=== PATIENT | female | born 1970 | race African-American/Black ===

== ENCOUNTER 2018-02-07 15:22 | Inpatient (IN) | payer MEDICAID ==
[~2018-02-07] VITALS: Ht 167.6 cm; Wt 84.8 kg
[~2018-02-07 15:22] MED LIST: ALBU6.7H9 IH; AMLO10TA4 PO; ASC250 PO; CLON-457 PO; FERR325T23 PO; FLUT1DIS3 IH; HYDR-4001 PO; IBUP-2030 PO; LEVO500T2 PO; MONT10TA21 PO
[2018-02-07] MEDS ORDERED: METHYLPREDNISOLONE SOD SUCC 125 MG/2 ML VIAL IV STA (15:33)
[2018-02-07] MEDS ORDERED: ALBUTEROL (0.083%) 2.5MG/3ML NEB HHN STA (15:33)
[2018-02-07] MEDS ORDERED: IPRATROPIUM BROMIDE (0.02%) 0.5MG/2.5ML NEB HHN STA (15:33)
[2018-02-07 17:04] LABS: CHLORIDE 105 mEq/L (98-107)
[2018-02-07 17:08] LABS: BASOPHILS % 0.1 % (0.0-2.0); EOSINOPHILS % 0.6 % (0.0-5.0); HEMATOCRIT. 26.8 % (36.0-48.0); HEMOGLOBIN. 8.5 g/dL (12.0-16.0); LYMPHOCYTES % 13.6 % (20.0-50.0); MEAN CORPUSCULAR HEMOGLOBIN 29.9 pg (28.0-32.0); MEAN CORPUSCULAR VOLUME 94.2 fL (81.0-99.0); MEAN PLATELET VOLUME 6.6 fl (7.4-10.4); MONOCYTES % 7.3 % (2.0-8.0); NEUTROPHILS % 78.4 % (40.0-76.0); PLATELET 278 x1000/uL (130-400); RED BLOOD CELL COUNT 2.84 mill/uL (4.2-5.4); RED CELL DISTRIBUTION WIDTH 21.8 % (11.6-14.6)
[2018-02-07 17:11] LABS: HCG SCREEN NEGATIVE
[2018-02-07] MEDS ORDERED: ACETAMINOPHEN 325MG TABLET PO ONE (17:15)
[2018-02-07] MEDS ORDERED: LORAZEPAM 1MG TABLET PO ONE (17:15)
[2018-02-07 17:28] LABS: *AMPHETAMINES SCREEN URINE NEGATIVE (NEGATIVE); *BARBITURATES SCREEN URINE NEGATIVE (NEGATIVE)
[2018-02-07 17:29] LABS: *BENZODIAZEPINES SCREEN URINE NEGATIVE (NEGATIVE); METHADONE URINE SCREEN NEGATIVE (NEGATIVE); OPIATES URINE SCREEN NEGATIVE (NEGATIVE); PHENCYCLIDINE URINE SCREEN NEGATIVE (NEGATIVE)
[2018-02-07 17:36] LABS: *COCAINE SCREEN URINE PRESUMTIVE POSITIVE (NEGATIVE); CANNABINOID URINE SCREEN PRESUMTIVE POSITIVE (NEGATIVE)
[2018-02-07] MEDS ORDERED: ENOXAPARIN 40MG/0.4ML SYR SUBCUT SCH (18:45)
[2018-02-07] MEDS ORDERED: METHYLPREDNISOLONE SOD SUCC 125 MG/2 ML VIAL IV SCH (18:45)
[2018-02-07] MEDS ORDERED: MAGNESIUM/ALUMINUM HYDROXIDE/SIMETHICONE 30ML UDC PO PRN (18:45)
[2018-02-07] MEDS ORDERED: MORPHINE SULFATE 4 MG/ML CPJ (NOT FOR IM USE) IV PRN (18:45)
[2018-02-07] MEDS ORDERED: NA PHOS,M-B/NA PHOS,DI-BA ENEMA 118ML PR PRN (18:45)
[2018-02-07] MEDS ORDERED: GUAIFENESIN 200MG/10ML SUGAR FREE UDC PO PRN (18:45)
[2018-02-07] MEDS ORDERED: ONDANSETRON HCL 4MG/2ML INJ IV PRN (18:45)
[2018-02-07] MEDS ORDERED: LORAZEPAM 2MG/ML CPJ IV PRN (18:45)
[2018-02-07] MEDS ORDERED: ACETAMINOPHEN 325MG TABLET PO PRN (18:45)
[2018-02-07] MEDS ORDERED: DOCUSATE SODIUM 100MG CAPSULE PO PRN (18:45)
[2018-02-07] MEDS ORDERED: LEVOFLOXACIN 500MG PREMIX 100 ML IV SCH ×2 (19:00→19:21)
[2018-02-07 23:19] VITALS: BP 156/80
[2018-02-07] MEDS ORDERED: ZOLPIDEM TARTRATE 5MG TABLET PO PRN (23:45)
[2018-02-07] MEDS: HYDROCODONE/ACETAMINOPHEN 10/325MG TABLET PO PRN (23:46)
[2018-02-08] MEDS: METHYLPREDNISOLONE SOD SUCC 125 MG/2 ML VIAL IV SCH ×5 (00:34→23:56)
[2018-02-08 00:43] LABS: CREATINE KINASE 78 IU/L (26-192)
[2018-02-08 00:44] LABS: CREATINE KINASE MB FRACTION < 1.0 ng/mL (0.5-3.6)
[2018-02-08 00:49] VITALS: BP 156/80
[2018-02-08] MEDS: IPRATROPIUM/ALBUTEROL 0.5-3(2.5)MG/3ML NEB INH PRN ×3 (02:15→08:47)
[2018-02-08 04:00] VITALS: BP 171/89
[2018-02-08] MEDS: CLONIDINE 0.1MG TABLET PO PRN ×2 (04:10→08:51)
[2018-02-08 07:33] LABS: HEMATOCRIT. 25.7 % (36.0-48.0); HEMOGLOBIN. 8.4 g/dL (12.0-16.0); MEAN CORPUSCULAR HEMOGLOBIN 30.4 pg (28.0-32.0); MEAN CORPUSCULAR VOLUME 93.5 fL (81.0-99.0); MEAN PLATELET VOLUME 7.2 fl (7.4-10.4); PLATELET 286 x1000/uL (130-400); RED BLOOD CELL COUNT 2.75 mill/uL (4.2-5.4); RED CELL DISTRIBUTION WIDTH 21.6 % (11.6-14.6)
[2018-02-08 07:45] LABS: CHLORIDE 104 mEq/L (98-107)
[2018-02-08 08:00] VITALS: BP 165/83
[2018-02-08 08:04] LABS: CREATINE KINASE 90 IU/L (26-192)
[2018-02-08 08:07] LABS: CREATINE KINASE MB FRACTION < 1.0 ng/mL (0.5-3.6)
[2018-02-08] MEDS: ASPIRIN 81MG EC TABLET PO SCH (08:51)
[2018-02-08] MEDS: ENOXAPARIN 40MG/0.4ML SYR SUBCUT SCH (08:51)
[2018-02-08] MEDS ORDERED: INFLUENZA VIRUS VACCINE(AFLURIA) 0.5ML SYR IM ONE (10:00)
[2018-02-08] MEDS ORDERED: AMLODIPINE 10MG TABLET PO SCH ×2 (10:00→12:15)
[2018-02-08 12:24] VITALS: BP 173/97
[2018-02-08] MEDS: HYDROCODONE/ACETAMINOPHEN 10/325MG TABLET PO PRN ×2 (12:24→20:16)
[2018-02-08] MEDS: IPRATROPIUM/ALBUTEROL 0.5-3(2.5)MG/3ML NEB HHN SCH ×3 (12:28→21:41)
[2018-02-08 13:20] LABS: PLATELET ESTIMATE NORMAL
[2018-02-08 16:00] VITALS: BP 131/91
[2018-02-08 20:00] VITALS: BP 139/69
[2018-02-08] MEDS: LEVOFLOXACIN 500MG PREMIX 100 ML IV SCH (20:15)
[2018-02-08] MEDS: MONTELUKAST SODIUM 10MG TABLET PO SCH (20:15)
[2018-02-09] VITALS: BP 145/83
[2018-02-09] MEDS: IPRATROPIUM/ALBUTEROL 0.5-3(2.5)MG/3ML NEB HHN SCH ×6 (01:25→20:40)
[2018-02-09 04:00] VITALS: BP 143/68
[2018-02-09] MEDS: METHYLPREDNISOLONE SOD SUCC 125 MG/2 ML VIAL IV SCH ×3 (05:41→18:05)
[2018-02-09] MEDS: HYDROCODONE/ACETAMINOPHEN 10/325MG TABLET PO PRN ×2 (05:44→18:05)
[2018-02-09 08:00] VITALS: BP 148/82
[2018-02-09] MEDS: ENOXAPARIN 40MG/0.4ML SYR SUBCUT SCH (08:43)
[2018-02-09] MEDS: ASPIRIN 81MG EC TABLET PO SCH (08:43)
[2018-02-09 11:49] VITALS: BP 157/73
[2018-02-09] MEDS: AMLODIPINE 10MG TABLET PO SCH (12:31)
[2018-02-09] MEDS: LORATADINE 10MG TABLET PO SCH (12:36)
[2018-02-09 16:00] VITALS: BP 157/96
[2018-02-09] MEDS: MONTELUKAST SODIUM 10MG TABLET PO SCH (18:05)
[2018-02-09 20:00] VITALS: BP 148/80
[2018-02-09] MEDS: LEVOFLOXACIN 500MG PREMIX 100 ML IV SCH (20:41)
[2018-02-09] MEDS: GUAIFENESIN 600MG ER TABLET PO SCH (20:42)
[2018-02-09] MEDS: FAMOTIDINE 20MG/2ML VIAL IV SCH (20:42)
[2018-02-10] VITALS (7 sets, daily range): BP systolic 90–171; BP diastolic 38–95
[2018-02-10] MEDS: CLONIDINE 0.1MG TABLET PO PRN (00:03)
[2018-02-10] MEDS: METHYLPREDNISOLONE SOD SUCC 125 MG/2 ML VIAL IV SCH ×3 (00:03→11:50)
[2018-02-10] MEDS: HYDROCODONE/ACETAMINOPHEN 10/325MG TABLET PO PRN (00:12)
[2018-02-10] MEDS: IPRATROPIUM/ALBUTEROL 0.5-3(2.5)MG/3ML NEB HHN SCH ×6 (01:00→20:45)
[2018-02-10 06:50] LABS: HEMOGLOBIN. 9.5 g/dL (12.0-16.0); MEAN CORPUSCULAR HEMOGLOBIN 29.9 pg (28.0-32.0); MEAN CORPUSCULAR VOLUME 94.1 fL (81.0-99.0); PLATELET 362 x1000/uL (130-400); RED BLOOD CELL COUNT 3.18 mill/uL (4.2-5.4); RED CELL DISTRIBUTION WIDTH 21.5 % (11.6-14.6)
[2018-02-10] MEDS: AMLODIPINE 10MG TABLET PO SCH (09:22)
[2018-02-10] MEDS: GUAIFENESIN 600MG ER TABLET PO SCH ×3 (09:22→21:24)
[2018-02-10] MEDS: ASPIRIN 81MG EC TABLET PO SCH (09:23)
[2018-02-10] MEDS: FAMOTIDINE 20MG/2ML VIAL IV SCH ×2 (09:24→21:24)
[2018-02-10] MEDS: ENOXAPARIN 40MG/0.4ML SYR SUBCUT SCH (09:24)
[2018-02-10] MEDS: LORATADINE 10MG TABLET PO SCH ×2 (09:56→16:45)
[2018-02-10 15:55] LABS: PLATELET ESTIMATE NORMAL
[2018-02-10] MEDS: PREDNISONE 20MG TABLET PO SCH (16:45)
[2018-02-10] MEDS: MONTELUKAST SODIUM 10MG TABLET PO SCH (16:49)
[2018-02-10] MEDS ORDERED: SODIUM CHLORIDE 3% FOR INH 15ML VIAL NEB INH SCH (17:00)
[2018-02-10] MEDS ORDERED: OXYMETAZOLINE HCL NASAL SPRAY 15ML BOTHNSTRLS PRN (17:00)
[2018-02-10] MEDS ORDERED: SODIUM CHLORIDE 3% FOR INH 4ML UD NEB INH SCH (18:00)
[2018-02-10] MEDS: LEVOFLOXACIN 500MG PREMIX 100 ML IV SCH (21:25)
[2018-02-11] VITALS: BP 143/78
[2018-02-11] MEDS: IPRATROPIUM/ALBUTEROL 0.5-3(2.5)MG/3ML NEB HHN SCH ×6 (00:43→20:08)
[2018-02-11] MEDS: HYDROCODONE/ACETAMINOPHEN 10/325MG TABLET PO PRN ×2 (02:47→20:29)
[2018-02-11 04:51] VITALS: BP 136/68
[2018-02-11 06:47] LABS: HEMATOCRIT. 30.9 % (36.0-48.0); HEMOGLOBIN. 9.9 g/dL (12.0-16.0); MEAN CORPUSCULAR HEMOGLOBIN 30.2 pg (28.0-32.0); MEAN CORPUSCULAR VOLUME 94.2 fL (81.0-99.0); MEAN PLATELET VOLUME 6.9 fl (7.4-10.4); PLATELET 379 x1000/uL (130-400); RED BLOOD CELL COUNT 3.28 mill/uL (4.2-5.4); RED CELL DISTRIBUTION WIDTH 21.2 % (11.6-14.6)
[2018-02-11 08:00] VITALS: BP 147/84
[2018-02-11] MEDS: GUAIFENESIN 600MG ER TABLET PO SCH ×4 (09:00→21:00)
[2018-02-11] MEDS: AMLODIPINE 10MG TABLET PO SCH (09:01)
[2018-02-11] MEDS: PREDNISONE 20MG TABLET PO SCH ×2 (09:01→17:16)
[2018-02-11] MEDS: FAMOTIDINE 20MG/2ML VIAL IV SCH ×2 (09:01→20:27)
[2018-02-11] MEDS: ASPIRIN 81MG EC TABLET PO SCH (09:01)
[2018-02-11] MEDS: ENOXAPARIN 40MG/0.4ML SYR SUBCUT SCH (09:01)
[2018-02-11] MEDS: ACETYLCYSTEINE 100MG/ML 10% VIAL 4ML INH SCH ×2 (09:12→16:33)
[2018-02-11 10:32] LABS: PLATELET ESTIMATE NORMAL
[2018-02-11 12:00] VITALS: BP 134/78
[2018-02-11 16:00] VITALS: BP 134/80
[2018-02-11] MEDS: MONTELUKAST SODIUM 10MG TABLET PO SCH (17:16)
[2018-02-11 20:00] VITALS: BP 149/78
[2018-02-11] MEDS: LEVOFLOXACIN 500MG PREMIX 100 ML IV SCH (20:27)
[2018-02-12] VITALS: BP 150/84
[2018-02-12] MEDS: ACETYLCYSTEINE 100MG/ML 10% VIAL 4ML INH SCH ×2 (00:01→07:59)
[2018-02-12] MEDS: IPRATROPIUM/ALBUTEROL 0.5-3(2.5)MG/3ML NEB HHN SCH ×3 (00:01→08:00)
[2018-02-12 04:00] VITALS: BP 131/78
[2018-02-12 08:00] VITALS: BP 152/102
[2018-02-12] MEDS: PREDNISONE 20MG TABLET PO SCH (08:48)
[2018-02-12] MEDS: ASPIRIN 81MG EC TABLET PO SCH (08:48)
[2018-02-12] MEDS: GUAIFENESIN 600MG ER TABLET PO SCH (08:48)
[2018-02-12] MEDS: LORATADINE 10MG TABLET PO SCH (08:48)
[2018-02-12] MEDS: AMLODIPINE 10MG TABLET PO SCH (08:48)
[2018-02-12] MEDS: ENOXAPARIN 40MG/0.4ML SYR SUBCUT SCH (08:49)
[2018-02-12] MEDS: FAMOTIDINE 20MG/2ML VIAL IV SCH (08:49)
[2018-02-12 09:08] LABS: BG CARBOXYHEMOGLOBIN 0.3 % (0.5-1.5); BG DEOXYHEMOGLOBIN 1.7 % (0.0-5.0); BG HCO3 ACT 27.4 mmol/L (22.0-26.0); BG OXYGEN SATURATION 98.3 % (92.0-98.5); BG PCO2 41.3 mmHg (35.0-45.0); BG PO2 114.8 mmHg (75.0-100.0); BG SAMPLE SITE RIGHT RADIAL; BG TOTAL HEMOGLOBIN 10.2 g/dL (12.0-18.0); BG VENT MODE NASAL CANNULA
== END 2018-02-12 12:12 | disposition left against medical advice (07) | DRG 816 ==
LOC: ER 15:45 → 7WST 17:58 → EDBEDREQ 17:59 → EDBEDREQTM 17:59 → ENRESERV 21:17 → EDBEDREQ 22:57
PROVIDERS: ADMIT Internal Medicine; ATTEND Internal Medicine
DX: T40.5X1A Poisoning by cocaine, accidental (unintentional), initial encounter (principal); J96.00 Acute respiratory failure, unspecified whether with hypoxia or hypercapnia; E46 Unspecified protein-calorie malnutrition; J68.0 Bronchitis and pneumonitis due to chemicals, gases, fumes and vapors; J45.901 Unspecified asthma with (acute) exacerbation; E44.1 Mild protein-calorie malnutrition; I10 Essential (primary) hypertension; D25.9 Leiomyoma of uterus, unspecified; F12.10 Cannabis abuse, uncomplicated; D50.0 Iron deficiency anemia secondary to blood loss (chronic); N92.0 Excessive and frequent menstruation with regular cycle; M67.431 Ganglion, right wrist; R04.0 Epistaxis; Z68.30 Body mass index [BMI] 30.0-30.9, adult; Y92.89 Other specified places as the place of occurrence of the external cause; Z79.2 Long term (current) use of antibiotics; Z79.1 Long term (current) use of non-steroidal anti-inflammatories (NSAID); Z79.899 Other long term (current) drug therapy
CPT/HCPCS: 36415; 36600; 71045; 80048; 80305; 81025; 82375; 82550; 82553; 82805; 83880; 84484; 84703; 87493; 90686; 93005; 94640; 96365; 96375; 99285; J1650; J1956; J2405; J2930; J3490; J7050; J7512; J7608; J7611; J7620

== ENCOUNTER 2018-04-09 19:36 | Inpatient (IN) | payer MEDICAID ==
[~2018-04-09] VITALS: Ht 167.6 cm; Wt 89.4 kg
[2018-04-09] MEDS ORDERED: METHYLPREDNISOLONE SOD SUCC 125 MG/2 ML VIAL IV STA (19:37)
[2018-04-09] MEDS ORDERED: ALBUTEROL (0.083%) 2.5MG/3ML NEB HHN STA (19:37)
[2018-04-09] MEDS ORDERED: IPRATROPIUM BROMIDE (0.02%) 0.5MG/2.5ML NEB HHN STA (19:37)
[2018-04-09] MEDS ORDERED: EPINEPHRINE 1:1000 1 MG/ML AMP SUBCUT ONE (19:45)
[2018-04-09] MEDS ORDERED: NITROGLYCERIN OINT 1GM/INCH UDPKT TD ONE (19:45)
[2018-04-09] MEDS ORDERED: ASPIRIN 81MG TABLET PO ONE (19:45)
[2018-04-09] MEDS ORDERED: MAGNESIUM 2 G PREMIX 50 ML IV ONE (19:45)
[2018-04-09 20:34] LABS: BG BASE EXCESS -5.3 mmol/L (-2.0-2.0); BG BILEVEL POS AIRWAY PRESSURE 15/5; BG CARBOXYHEMOGLOBIN 1.4 % (0.5-1.5); BG DEOXYHEMOGLOBIN 0.7 % (0.0-5.0); BG FRACTION INSPIRED OXYGEN 40; BG HCO3 ACT 16.9 mmol/L (22.0-26.0); BG METHEMOGLOBIN 0.2 % (0.0-1.5); BG OXYGEN SATURATION 99.3 % (92.0-98.5); BG OXYHEMOGLOBIN 97.7 % (94.0-97.0); BG PCO2 24.7 mmHg (35.0-45.0); BG PH 7.454 (7.350-7.450); BG PO2 200.5 mmHg (75.0-100.0); BG SAMPLE SITE RIGHT RADIAL; BG TOTAL HEMOGLOBIN 12.5 g/dL (12.0-18.0); BG VENT MODE MASK - BIPAP; BG VENT RATE 14 set
[2018-04-09 20:36] LABS: BASOPHILS % 0.5 % (0.0-2.0); HEMATOCRIT. 36.6 % (36.0-48.0); HEMOGLOBIN. 11.8 g/dL (12.0-16.0); LYMPHOCYTES % 24.6 % (20.0-50.0); MEAN CORPUSCULAR HEMOGLOBIN 28.5 pg (28.0-32.0); MEAN CORPUSCULAR VOLUME 88.7 fL (81.0-99.0); MEAN PLATELET VOLUME 7.8 fl (7.4-10.4); MONOCYTES % 14.7 % (2.0-8.0); NEUTROPHILS % 60.2 % (40.0-76.0); PLATELET 244 x1000/uL (130-400); RED BLOOD CELL COUNT 4.13 mill/uL (4.2-5.4); RED CELL DISTRIBUTION WIDTH 18.3 % (11.6-14.6)
[2018-04-09 20:42] LABS: CHLORIDE 104 mEq/L (98-107)
[2018-04-09 20:43] LABS: PARTIAL THROMBOPLASTIN TIME 29.4 sec (23.4-31.0); PROTHROMBIN TIME 10.5 sec (9.1-11.1)
[2018-04-09 20:46] LABS: HCG SCREEN NEGATIVE
[2018-04-09] MEDS ORDERED: LEVOFLOXACIN 750MG PREMIX 150 ML IV ONE (21:00)
[2018-04-09] MEDS ORDERED: KCL 20MEQ/100ML PREMIX 100 ML IV ONE (21:00)
[2018-04-09] MEDS ORDERED: SODIUM CHLORIDE 0.9% 1000ML BAG (SEPSIS BOLUS) IV ONE (21:00)
[2018-04-10] VITALS (12 sets, daily range): BP systolic 135–187; BP diastolic 82–178
[2018-04-10 00:47] LABS: CLARITY URINE CLOUDY (CLEAR); KETONES URINE TRACE (NEGATIVE); LEUKOCYTE ESTERASE URINE 1+ (NEGATIVE); NITRITE URINE NEGATIVE (NEGATIVE); OCCULT BLOOD URINE 3+ (NEGATIVE); PH URINE 5.5 (4.5-8.0); PROTEIN URINE 2+ (NEGATIVE); UROBILINOGEN URINE 0.2 E.U./dL (0.2-1.0)
[2018-04-10 01:09] LABS: COLOR URINE BROWN (YELLOW)
[2018-04-10] MEDS: METHYLPREDNISOLONE SOD SUCC 40 MG/ML VIAL IV SCH ×3 (05:51→21:28)
[2018-04-10] MEDS: CLONIDINE 0.1MG TABLET PO PRN ×2 (05:52→11:48)
[2018-04-10] MEDS ORDERED: NON FORMULARY PATIENT HOME MED XX SCH (07:30)
[2018-04-10] MEDS: BUDESONIDE 0.5MG/2ML NEB HHN SCH ×2 (08:12→21:06)
[2018-04-10] MEDS: IPRATROPIUM/ALBUTEROL 0.5-3(2.5)MG/3ML NEB HHN SCH ×4 (08:15→21:03)
[2018-04-10] MEDS: AMLODIPINE 10MG TABLET PO SCH (09:19)
[2018-04-10] MEDS: FERROUS SULFATE 325MG TABLET PO SCH (09:19)
[2018-04-10] MEDS: LOSARTAN POTASSIUM 100 MG TABLET PO SCH (09:20)
[2018-04-10] MEDS ORDERED: LABETALOL 5MG/ML SYR 20 MG/4 ML SYRINGE IV SCH (11:45)
[2018-04-10] MEDS: ENOXAPARIN 40MG/0.4ML SYR SUBCUT SCH (12:00)
[2018-04-10 13:49] LABS: CHLORIDE 107 mEq/L (98-107)
[2018-04-10 13:52] LABS: *AMPHETAMINES SCREEN URINE NEGATIVE (NEGATIVE); *BARBITURATES SCREEN URINE NEGATIVE (NEGATIVE); *BENZODIAZEPINES SCREEN URINE NEGATIVE (NEGATIVE); *COCAINE SCREEN URINE NEGATIVE (NEGATIVE)
[2018-04-10 13:53] LABS: CANNABINOID URINE SCREEN NEGATIVE (NEGATIVE); METHADONE URINE SCREEN NEGATIVE (NEGATIVE); PHENCYCLIDINE URINE SCREEN NEGATIVE (NEGATIVE)
[2018-04-10] MEDS: HYDRALAZINE HCL 50MG TABLET PO SCH ×2 (14:07→21:28)
[2018-04-10 14:21] LABS: OPIATES URINE SCREEN PRESUMTIVE POSITIVE (NEGATIVE)
[2018-04-10] MEDS: HYDROCODONE/ACETAMINOPHEN 5/325MG TABLET PO PRN ×2 (15:01→21:56)
[2018-04-10] MEDS: ACETYLCYSTEINE 100MG/ML 10% VIAL 4ML INH SCH (15:30)
[2018-04-10] MEDS: MONTELUKAST SODIUM 10MG TABLET PO SCH (17:04)
[2018-04-10] MEDS ORDERED: CEFTRIAXONE 1 G PREMIX 50 ML IV SCH (18:30)
[2018-04-10] MEDS: FAMOTIDINE 20MG TABLET PO SCH (21:27)
[2018-04-10] MEDS: GUAIFENESIN 600MG ER TABLET PO SCH (21:27)
[2018-04-10] MEDS: AZITHROMYCIN 500 MG in DEXT 5% WATER 250 ML IV SCH (21:29)
[2018-04-10] MEDS ORDERED: LEVOFLOXACIN 500MG PREMIX 100 ML IV SCH (22:00)
[2018-04-11] VITALS (10 sets, daily range): BP systolic 125–164; BP diastolic 72–101
[2018-04-11] MEDS: IPRATROPIUM/ALBUTEROL 0.5-3(2.5)MG/3ML NEB HHN SCH ×6 (00:51→20:22)
[2018-04-11] MEDS: ACETYLCYSTEINE 100MG/ML 10% VIAL 4ML INH SCH ×3 (00:52→16:13)
[2018-04-11] MEDS: METHYLPREDNISOLONE SOD SUCC 40 MG/ML VIAL IV SCH ×3 (06:30→21:50)
[2018-04-11] MEDS: HYDRALAZINE HCL 50MG TABLET PO SCH ×3 (06:31→21:49)
[2018-04-11 08:04] LABS: HEMATOCRIT. 35.2 % (36.0-48.0); HEMOGLOBIN. 11.2 g/dL (12.0-16.0); MEAN CORPUSCULAR HEMOGLOBIN 28.3 pg (28.0-32.0); MEAN CORPUSCULAR VOLUME 89.2 fL (81.0-99.0); MEAN PLATELET VOLUME 7.9 fl (7.4-10.4); PLATELET 263 x1000/uL (130-400); RED BLOOD CELL COUNT 3.95 mill/uL (4.2-5.4); RED CELL DISTRIBUTION WIDTH 18.2 % (11.6-14.6)
[2018-04-11 08:08] LABS: CHLORIDE 109 mEq/L (98-107)
[2018-04-11] MEDS: FERROUS SULFATE 325MG TABLET PO SCH (08:37)
[2018-04-11] MEDS: FAMOTIDINE 20MG TABLET PO SCH ×2 (08:37→21:49)
[2018-04-11] MEDS: ENOXAPARIN 40MG/0.4ML SYR SUBCUT SCH (08:37)
[2018-04-11] MEDS: GUAIFENESIN 600MG ER TABLET PO SCH ×2 (08:37→21:49)
[2018-04-11] MEDS: LOSARTAN POTASSIUM 100 MG TABLET PO SCH (08:37)
[2018-04-11] MEDS: AMLODIPINE 10MG TABLET PO SCH (08:38)
[2018-04-11 08:55] LABS: PLATELET ESTIMATE NORMAL
[2018-04-11] MEDS: BUDESONIDE 0.5MG/2ML NEB HHN SCH ×2 (09:06→20:22)
[2018-04-11] MEDS: MONTELUKAST SODIUM 10MG TABLET PO SCH (17:03)
[2018-04-11] MEDS: HYDROCODONE/ACETAMINOPHEN 5/325MG TABLET PO PRN (18:41)
[2018-04-11] MEDS: AZITHROMYCIN 500 MG in DEXT 5% WATER 250 ML IV SCH (20:08)
[2018-04-11] MEDS: LORATADINE 10MG TABLET PO SCH (21:51)
[2018-04-12] VITALS (7 sets, daily range): BP systolic 146–166; BP diastolic 76–106
[2018-04-12] MEDS: ACETYLCYSTEINE 100MG/ML 10% VIAL 4ML INH SCH ×4 (00:31→20:43)
[2018-04-12] MEDS: IPRATROPIUM/ALBUTEROL 0.5-3(2.5)MG/3ML NEB HHN SCH ×6 (00:31→20:43)
[2018-04-12] MEDS: HYDRALAZINE HCL 50MG TABLET PO SCH ×3 (06:28→21:13)
[2018-04-12] MEDS: METHYLPREDNISOLONE SOD SUCC 40 MG/ML VIAL IV SCH ×3 (06:28→21:12)
[2018-04-12 08:03] LABS: HEMATOCRIT. 39.4 % (36.0-48.0); HEMOGLOBIN. 12.5 g/dL (12.0-16.0); MEAN CORPUSCULAR HEMOGLOBIN 28.4 pg (28.0-32.0); MEAN PLATELET VOLUME 8.1 fl (7.4-10.4); PLATELET 316 x1000/uL (130-400); RED BLOOD CELL COUNT 4.43 mill/uL (4.2-5.4); RED CELL DISTRIBUTION WIDTH 17.9 % (11.6-14.6)
[2018-04-12 08:21] LABS: CHLORIDE 105 mEq/L (98-107)
[2018-04-12] MEDS: LOSARTAN POTASSIUM 100 MG TABLET PO SCH (08:24)
[2018-04-12] MEDS: AMLODIPINE 10MG TABLET PO SCH (08:24)
[2018-04-12] MEDS: FAMOTIDINE 20MG TABLET PO SCH ×2 (08:24→21:13)
[2018-04-12] MEDS: LORATADINE 10MG TABLET PO SCH (08:24)
[2018-04-12] MEDS: FERROUS SULFATE 325MG TABLET PO SCH (08:24)
[2018-04-12] MEDS: GUAIFENESIN 600MG ER TABLET PO SCH ×2 (08:24→21:12)
[2018-04-12] MEDS: ENOXAPARIN 40MG/0.4ML SYR SUBCUT SCH (08:24)
[2018-04-12] MEDS: CEFTRIAXONE 1 G PREMIX 50 ML IV SCH (08:25)
[2018-04-12] MEDS: BUDESONIDE 0.5MG/2ML NEB HHN SCH ×2 (09:53→20:43)
[2018-04-12 10:55] LABS: PLATELET ESTIMATE NORMAL
[2018-04-12] MEDS ORDERED: TERBUTALINE SULFATE 1MG/ML VIAL SUBCUT SCH (12:15)
[2018-04-12] MEDS: HYDROCODONE/ACETAMINOPHEN 5/325MG TABLET PO PRN (13:50)
[2018-04-12] MEDS: MONTELUKAST SODIUM 10MG TABLET PO SCH (17:12)
[2018-04-12] MEDS: AZITHROMYCIN 500 MG in DEXT 5% WATER 250 ML IV SCH (21:12)
[2018-04-13] VITALS (9 sets, daily range): BP systolic 140–157; BP diastolic 72–101
[2018-04-13] MEDS: IPRATROPIUM/ALBUTEROL 0.5-3(2.5)MG/3ML NEB HHN SCH ×4 (00:22→12:49)
[2018-04-13] MEDS: HYDROCODONE/ACETAMINOPHEN 5/325MG TABLET PO PRN ×2 (01:12→21:48)
[2018-04-13 06:09] LABS: BASOPHILS % 0.1 % (0.0-2.0); HEMATOCRIT. 36.3 % (36.0-48.0); HEMOGLOBIN. 11.7 g/dL (12.0-16.0); LYMPHOCYTES % 7.8 % (20.0-50.0); MEAN CORPUSCULAR HEMOGLOBIN 28.6 pg (28.0-32.0); MEAN CORPUSCULAR VOLUME 89.1 fL (81.0-99.0); MEAN PLATELET VOLUME 7.9 fl (7.4-10.4); MONOCYTES % 4.6 % (2.0-8.0); NEUTROPHILS % 87.5 % (40.0-76.0); PLATELET 278 x1000/uL (130-400); RED BLOOD CELL COUNT 4.07 mill/uL (4.2-5.4); RED CELL DISTRIBUTION WIDTH 17.9 % (11.6-14.6)
[2018-04-13 06:24] LABS: CHLORIDE 105 mEq/L (98-107)
[2018-04-13] MEDS: METHYLPREDNISOLONE SOD SUCC 40 MG/ML VIAL IV SCH ×3 (06:55→21:21)
[2018-04-13] MEDS: HYDRALAZINE HCL 50MG TABLET PO SCH ×3 (06:56→21:22)
[2018-04-13] MEDS: LORATADINE 10MG TABLET PO SCH (08:52)
[2018-04-13] MEDS: FAMOTIDINE 20MG TABLET PO SCH ×2 (08:52→21:22)
[2018-04-13] MEDS: FERROUS SULFATE 325MG TABLET PO SCH (08:52)
[2018-04-13] MEDS: LOSARTAN POTASSIUM 100 MG TABLET PO SCH (08:52)
[2018-04-13] MEDS: ENOXAPARIN 40MG/0.4ML SYR SUBCUT SCH (08:53)
[2018-04-13] MEDS: GUAIFENESIN 600MG ER TABLET PO SCH ×2 (08:53→21:21)
[2018-04-13] MEDS: CEFTRIAXONE 1 G PREMIX 50 ML IV SCH (08:53)
[2018-04-13] MEDS: AMLODIPINE 10MG TABLET PO SCH (08:53)
[2018-04-13] MEDS: BUDESONIDE 0.5MG/2ML NEB HHN SCH (08:58)
[2018-04-13] MEDS: ACETYLCYSTEINE 100MG/ML 10% VIAL 4ML INH SCH (09:01)
[2018-04-13] MEDS ORDERED: GUAIFENESIN/CODEINE 100-10MG/5ML UDC PO PRN (16:30)
[2018-04-13] MEDS: IPRATROPIUM BROMIDE (0.02%) 0.5MG/2.5ML NEB HHN SCH ×2 (16:48→21:07)
[2018-04-13] MEDS: MONTELUKAST SODIUM 10MG TABLET PO SCH (17:34)
[2018-04-13] MEDS: AZITHROMYCIN 500 MG in DEXT 5% WATER 250 ML IV SCH (17:34)
[2018-04-14] VITALS (8 sets, daily range): BP systolic 133–167; BP diastolic 78–104
[2018-04-14] MEDS: IPRATROPIUM BROMIDE (0.02%) 0.5MG/2.5ML NEB HHN SCH ×5 (01:48→16:50)
[2018-04-14] MEDS: METHYLPREDNISOLONE SOD SUCC 40 MG/ML VIAL IV SCH ×2 (07:03→13:15)
[2018-04-14] MEDS: HYDRALAZINE HCL 50MG TABLET PO SCH ×3 (07:04→21:35)
[2018-04-14] MEDS: ENOXAPARIN 40MG/0.4ML SYR SUBCUT SCH (09:19)
[2018-04-14] MEDS: CEFTRIAXONE 1 G PREMIX 50 ML IV SCH (09:20)
[2018-04-14] MEDS: FERROUS SULFATE 325MG TABLET PO SCH (09:20)
[2018-04-14] MEDS: FAMOTIDINE 20MG TABLET PO SCH ×2 (09:20→20:16)
[2018-04-14] MEDS: GUAIFENESIN 600MG ER TABLET PO SCH ×2 (09:20→20:16)
[2018-04-14] MEDS: LORATADINE 10MG TABLET PO SCH (09:20)
[2018-04-14] MEDS: LOSARTAN POTASSIUM 100 MG TABLET PO SCH (09:21)
[2018-04-14] MEDS: AMLODIPINE 10MG TABLET PO SCH (09:22)
[2018-04-14] MEDS ORDERED: SODIUM CHLORIDE 3% FOR INH 15ML VIAL NEB INH SCH (16:00)
[2018-04-14] MEDS: MONTELUKAST SODIUM 10MG TABLET PO SCH (17:13)
[2018-04-14] MEDS: OXYMETAZOLINE HCL NASAL SPRAY 15ML BOTHNSTRLS SCH (17:28)
[2018-04-14] MEDS: CLONIDINE 0.1MG TABLET PO PRN (17:29)
[2018-04-14] MEDS ORDERED: PREDNISONE 20MG TABLET PO ONE (18:00)
[2018-04-14] MEDS: AZITHROMYCIN 500 MG TABLET PO SCH (20:16)
[2018-04-14] MEDS: HYDROCODONE/ACETAMINOPHEN 5/325MG TABLET PO PRN (20:17)
[2018-04-14] MEDS: ACETAMINOPHEN 325MG TABLET PO PRN (21:33)
[2018-04-15] VITALS (8 sets, daily range): BP systolic 127–161; BP diastolic 65–105
[2018-04-15] MEDS: IPRATROPIUM BROMIDE (0.02%) 0.5MG/2.5ML NEB HHN SCH ×8 (01:01→23:48)
[2018-04-15] MEDS: HYDRALAZINE HCL 50MG TABLET PO SCH ×3 (06:56→21:07)
[2018-04-15] MEDS: PREDNISONE 20MG TABLET PO SCH (08:31)
[2018-04-15] MEDS: LOSARTAN POTASSIUM 100 MG TABLET PO SCH (08:32)
[2018-04-15] MEDS: FERROUS SULFATE 325MG TABLET PO SCH (08:32)
[2018-04-15] MEDS: AMLODIPINE 10MG TABLET PO SCH (08:32)
[2018-04-15] MEDS: ENOXAPARIN 40MG/0.4ML SYR SUBCUT SCH (08:32)
[2018-04-15] MEDS: GUAIFENESIN 600MG ER TABLET PO SCH ×2 (08:33→20:58)
[2018-04-15] MEDS: FAMOTIDINE 20MG TABLET PO SCH ×2 (08:33→20:58)
[2018-04-15] MEDS: CEFTRIAXONE 1 G PREMIX 50 ML IV SCH (08:33)
[2018-04-15] MEDS: OXYMETAZOLINE HCL NASAL SPRAY 15ML BOTHNSTRLS SCH ×3 (08:33→18:07)
[2018-04-15] MEDS: ACETAMINOPHEN 325MG TABLET PO PRN ×2 (08:50→21:43)
[2018-04-15] MEDS: LORATADINE 10MG TABLET PO SCH (08:50)
[2018-04-15] MEDS: BUDESONIDE 0.5MG/2ML NEB HHN SCH ×2 (09:28→21:20)
[2018-04-15] MEDS: MONTELUKAST SODIUM 10MG TABLET PO SCH (18:07)
[2018-04-15] MEDS: AZITHROMYCIN 500 MG TABLET PO SCH (20:59)
[2018-04-15] MEDS: HYDROCODONE/ACETAMINOPHEN 5/325MG TABLET PO PRN (20:59)
[2018-04-15] MEDS ORDERED: AZITHROMYCIN 500 MG TABLET PO SCH (21:00)
[2018-04-16] VITALS: BP 155/93
[2018-04-16 04:00] VITALS: BP 164/39
[2018-04-16] MEDS: IPRATROPIUM BROMIDE (0.02%) 0.5MG/2.5ML NEB HHN SCH ×6 (04:51→23:46)
[2018-04-16] MEDS: HYDRALAZINE HCL 50MG TABLET PO SCH ×2 (05:00→13:26)
[2018-04-16 08:00] VITALS: BP 153/109
[2018-04-16] MEDS: OXYMETAZOLINE HCL NASAL SPRAY 15ML BOTHNSTRLS SCH ×3 (09:45→16:52)
[2018-04-16] MEDS: ENOXAPARIN 40MG/0.4ML SYR SUBCUT SCH (09:46)
[2018-04-16] MEDS: CEFTRIAXONE 1 G PREMIX 50 ML IV SCH (09:47)
[2018-04-16] MEDS: PREDNISONE 20MG TABLET PO SCH (09:47)
[2018-04-16] MEDS: LORATADINE 10MG TABLET PO SCH (09:48)
[2018-04-16] MEDS: FERROUS SULFATE 325MG TABLET PO SCH (09:48)
[2018-04-16] MEDS: HYDROCODONE/ACETAMINOPHEN 5/325MG TABLET PO PRN ×2 (09:48→21:43)
[2018-04-16] MEDS: LOSARTAN POTASSIUM 100 MG TABLET PO SCH (09:48)
[2018-04-16] MEDS: AMLODIPINE 10MG TABLET PO SCH (09:49)
[2018-04-16] MEDS: FAMOTIDINE 20MG TABLET PO SCH ×2 (09:49→20:44)
[2018-04-16] MEDS: GUAIFENESIN 600MG ER TABLET PO SCH ×2 (09:49→20:44)
[2018-04-16] MEDS: BUDESONIDE 0.5MG/2ML NEB HHN SCH ×2 (11:30→20:58)
[2018-04-16 12:00] VITALS: BP 151/102
[2018-04-16] MEDS: SODIUM CHLORIDE 3% FOR INH 4ML UD NEB INH SCH ×2 (15:40→20:40)
[2018-04-16 16:00] VITALS: BP 150/93
[2018-04-16] MEDS: MONTELUKAST SODIUM 10MG TABLET PO SCH (16:52)
[2018-04-16] MEDS: ACETAMINOPHEN 325MG TABLET PO PRN (16:52)
[2018-04-16 19:25] VITALS: BP 136/84
[2018-04-16] MEDS: AZITHROMYCIN 500 MG TABLET PO SCH (20:44)
[2018-04-16] MEDS: HYDRALAZINE HCL 100MG TABLET PO SCH (20:45)
[2018-04-17] MEDS: ZOLPIDEM TARTRATE 5MG TABLET PO PRN
[2018-04-17 00:08] VITALS: BP 124/84
[2018-04-17 04:00] VITALS: BP 128/63
[2018-04-17] MEDS: IPRATROPIUM BROMIDE (0.02%) 0.5MG/2.5ML NEB HHN SCH ×6 (04:12→23:46)
[2018-04-17] MEDS: HYDRALAZINE HCL 100MG TABLET PO SCH ×3 (06:09→20:40)
[2018-04-17 08:00] VITALS: BP 135/89
[2018-04-17] MEDS: ENOXAPARIN 40MG/0.4ML SYR SUBCUT SCH (09:00)
[2018-04-17] MEDS: BUDESONIDE 0.5MG/2ML NEB HHN SCH (09:02)
[2018-04-17 09:18] LABS: BASOPHILS % 0.1 % (0.0-2.0); EOSINOPHILS % 0.1 % (0.0-5.0); HEMATOCRIT. 38.7 % (36.0-48.0); HEMOGLOBIN. 12.2 g/dL (12.0-16.0); LYMPHOCYTES % 28.4 % (20.0-50.0); MEAN CORPUSCULAR HEMOGLOBIN 28.1 pg (28.0-32.0); MEAN CORPUSCULAR VOLUME 89.4 fL (81.0-99.0); MEAN PLATELET VOLUME 7.4 fl (7.4-10.4); NEUTROPHILS % 64.4 % (40.0-76.0); PLATELET 377 x1000/uL (130-400); RED BLOOD CELL COUNT 4.33 mill/uL (4.2-5.4); RED CELL DISTRIBUTION WIDTH 18.2 % (11.6-14.6)
[2018-04-17] MEDS: OXYMETAZOLINE HCL NASAL SPRAY 15ML BOTHNSTRLS SCH ×3 (09:36→18:02)
[2018-04-17] MEDS: PREDNISONE 20MG TABLET PO SCH (09:37)
[2018-04-17] MEDS: CEFTRIAXONE 1 G PREMIX 50 ML IV SCH (09:37)
[2018-04-17] MEDS: GUAIFENESIN 600MG ER TABLET PO SCH ×2 (09:37→20:39)
[2018-04-17] MEDS: FAMOTIDINE 20MG TABLET PO SCH ×2 (09:38→20:39)
[2018-04-17] MEDS: LORATADINE 10MG TABLET PO SCH (09:38)
[2018-04-17] MEDS: AMLODIPINE 10MG TABLET PO SCH (09:38)
[2018-04-17] MEDS: LOSARTAN POTASSIUM 100 MG TABLET PO SCH (09:38)
[2018-04-17] MEDS: FERROUS SULFATE 325MG TABLET PO SCH (09:38)
[2018-04-17 12:00] VITALS: BP 124/67
[2018-04-17 16:00] VITALS: BP 135/67
[2018-04-17] MEDS: MONTELUKAST SODIUM 10MG TABLET PO SCH (18:01)
[2018-04-17 20:09] VITALS: BP 163/93
[2018-04-17] MEDS: AZITHROMYCIN 500 MG TABLET PO SCH (20:39)
[2018-04-17] MEDS: HYDROCODONE/ACETAMINOPHEN 5/325MG TABLET PO PRN (20:41)
[2018-04-17] MEDS: DOCUSATE SODIUM 250MG CAPSULE PO PRN ×2 (20:48)
[2018-04-18] VITALS (8 sets, daily range): BP systolic 128–152; BP diastolic 80–99
[2018-04-18] MEDS: IPRATROPIUM BROMIDE (0.02%) 0.5MG/2.5ML NEB HHN SCH ×5 (04:07→20:55)
[2018-04-18] MEDS: HYDRALAZINE HCL 100MG TABLET PO SCH ×3 (06:18→21:09)
[2018-04-18] MEDS: CEFTRIAXONE 1 G PREMIX 50 ML IV SCH (09:12)
[2018-04-18] MEDS: LOSARTAN POTASSIUM 100 MG TABLET PO SCH (09:13)
[2018-04-18] MEDS: GUAIFENESIN 600MG ER TABLET PO SCH ×2 (09:13→21:09)
[2018-04-18] MEDS: FERROUS SULFATE 325MG TABLET PO SCH (09:13)
[2018-04-18] MEDS: PREDNISONE 20MG TABLET PO SCH (09:14)
[2018-04-18] MEDS: FAMOTIDINE 20MG TABLET PO SCH ×2 (09:14→21:09)
[2018-04-18] MEDS: AMLODIPINE 10MG TABLET PO SCH (09:14)
[2018-04-18] MEDS: ENOXAPARIN 40MG/0.4ML SYR SUBCUT SCH (09:15)
[2018-04-18] MEDS: OXYMETAZOLINE HCL NASAL SPRAY 15ML BOTHNSTRLS SCH ×3 (09:49→17:59)
[2018-04-18] MEDS: LORATADINE 10MG TABLET PO SCH (13:34)
[2018-04-18] MEDS: MONTELUKAST SODIUM 10MG TABLET PO SCH (17:59)
[2018-04-18] MEDS: FLUTICASONE PROPIONATE 50MCG/SPRAY BOTTLE BOTHNSTRLS SCH (18:00)
[2018-04-18] MEDS: HYDROCODONE/ACETAMINOPHEN 5/325MG TABLET PO PRN (21:23)
[2018-04-18] MEDS: ZOLPIDEM TARTRATE 5MG TABLET PO PRN (21:23)
[2018-04-19] VITALS (7 sets, daily range): BP systolic 110–154; BP diastolic 69–99
[2018-04-19] MEDS: ACETYLCYSTEINE 100MG/ML 10% VIAL 4ML INH SCH ×3 (00:06→16:01)
[2018-04-19] MEDS: IPRATROPIUM/ALBUTEROL 0.5-3(2.5)MG/3ML NEB HHN PRN ×2 (00:06→03:49)
[2018-04-19] MEDS: IPRATROPIUM BROMIDE (0.02%) 0.5MG/2.5ML NEB HHN SCH ×6 (00:57→21:00)
[2018-04-19] MEDS: HYDRALAZINE HCL 100MG TABLET PO SCH ×3 (06:12→20:57)
[2018-04-19 06:56] LABS: BASOPHILS % 0.1 % (0.0-2.0); EOSINOPHILS % 0.2 % (0.0-5.0); HEMATOCRIT. 35.4 % (36.0-48.0); HEMOGLOBIN. 11.3 g/dL (12.0-16.0); MEAN CORPUSCULAR HEMOGLOBIN 28.5 pg (28.0-32.0); MEAN CORPUSCULAR VOLUME 89.2 fL (81.0-99.0); MEAN PLATELET VOLUME 7.2 fl (7.4-10.4); MONOCYTES % 10.8 % (2.0-8.0); NEUTROPHILS % 64.9 % (40.0-76.0); PLATELET 346 x1000/uL (130-400); RED BLOOD CELL COUNT 3.96 mill/uL (4.2-5.4); RED CELL DISTRIBUTION WIDTH 17.8 % (11.6-14.6)
[2018-04-19] MEDS ORDERED: PREDNISONE 20MG TABLET PO SCH (09:00)
[2018-04-19] MEDS: FLUTICASONE PROPIONATE 50MCG/SPRAY BOTTLE BOTHNSTRLS SCH ×2 (09:15→20:39)
[2018-04-19] MEDS: ENOXAPARIN 40MG/0.4ML SYR SUBCUT SCH (09:16)
[2018-04-19] MEDS: LORATADINE 10MG TABLET PO SCH (09:17)
[2018-04-19] MEDS: GUAIFENESIN 600MG ER TABLET PO SCH ×2 (09:17→20:56)
[2018-04-19] MEDS: AMLODIPINE 10MG TABLET PO SCH (09:17)
[2018-04-19] MEDS: FAMOTIDINE 20MG TABLET PO SCH ×2 (09:17→20:41)
[2018-04-19] MEDS: LOSARTAN POTASSIUM 100 MG TABLET PO SCH (09:17)
[2018-04-19] MEDS: FERROUS SULFATE 325MG TABLET PO SCH (09:17)
[2018-04-19] MEDS: MONTELUKAST SODIUM 10MG TABLET PO SCH (16:53)
[2018-04-19] MEDS: ENOXAPARIN 30MG/0.3ML SYR SUBCUT SCH (20:41)
[2018-04-19] MEDS: ZOLPIDEM TARTRATE 5MG TABLET PO PRN (20:54)
[2018-04-19] MEDS: HYDROCODONE/ACETAMINOPHEN 5/325MG TABLET PO PRN (20:56)
[2018-04-20] MEDS: IPRATROPIUM BROMIDE (0.02%) 0.5MG/2.5ML NEB HHN SCH ×2 (00:43→08:41)
[2018-04-20] MEDS: HYDRALAZINE HCL 100MG TABLET PO SCH (06:00)
[2018-04-20] MEDS: ACETYLCYSTEINE 100MG/ML 10% VIAL 4ML INH SCH (08:45)
[2018-04-20] MEDS ORDERED: PREDNISONE 20MG TABLET PO SCH (09:00)
[2018-04-20] MEDS: FLUTICASONE PROPIONATE 50MCG/SPRAY BOTTLE BOTHNSTRLS SCH (09:23)
[2018-04-20] MEDS: FERROUS SULFATE 325MG TABLET PO SCH (09:23)
[2018-04-20] MEDS: AMLODIPINE 10MG TABLET PO SCH (09:25)
[2018-04-20] MEDS: FAMOTIDINE 20MG TABLET PO SCH (09:25)
[2018-04-20 09:26] LABS: BASOPHILS % 0.6 % (0.0-2.0); EOSINOPHILS % 0.2 % (0.0-5.0); HEMATOCRIT. 35.9 % (36.0-48.0); HEMOGLOBIN. 11.5 g/dL (12.0-16.0); MEAN CORPUSCULAR HEMOGLOBIN 28.6 pg (28.0-32.0); MEAN CORPUSCULAR VOLUME 89.6 fL (81.0-99.0); MEAN PLATELET VOLUME 7.5 fl (7.4-10.4); MONOCYTES % 8.4 % (2.0-8.0); NEUTROPHILS % 61.8 % (40.0-76.0); PLATELET 358 x1000/uL (130-400); RED BLOOD CELL COUNT 4.01 mill/uL (4.2-5.4); RED CELL DISTRIBUTION WIDTH 17.7 % (11.6-14.6)
[2018-04-20] MEDS: ENOXAPARIN 30MG/0.3ML SYR SUBCUT SCH (09:28)
[2018-04-20] MEDS: GUAIFENESIN 600MG ER TABLET PO SCH (09:35)
[2018-04-20] MEDS: LOSARTAN POTASSIUM 100 MG TABLET PO SCH (09:35)
[2018-04-20] MEDS: LORATADINE 10MG TABLET PO SCH (09:35)
[2018-04-20 10:12] LABS: CHLORIDE 104 mEq/L (98-107)
[2018-04-20 11:49] VITALS: BP 155/99
== END 2018-04-20 14:42 | disposition home or self-care (01) | DRG 133 ==
LOC: ER 19:36 → 5EST 21:23 → EDBEDREQ 21:26 → EDBEDREQTM 21:26 → ENRESERV 04-10 01:50
PROVIDERS: ADMIT Internal Medicine; ATTEND Internal Medicine
PROC: 5A09357 Assistance with Respiratory Ventilation, Less than 24 Consecutive Hours, Continuous Positive Airway Pressure (ICD-10-PCS; principal; 2018-04-09)
PROC: 5A09357 Assistance with Respiratory Ventilation, Less than 24 Consecutive Hours, Continuous Positive Airway Pressure (ICD-10-PCS; 2018-04-11)
DX: J96.00 Acute respiratory failure, unspecified whether with hypoxia or hypercapnia (principal); E87.2 Acidosis; J45.901 Unspecified asthma with (acute) exacerbation; J45.902 Unspecified asthma with status asthmaticus; E66.01 Morbid (severe) obesity due to excess calories; E83.42 Hypomagnesemia; F14.10 Cocaine abuse, uncomplicated; E87.6 Hypokalemia; N39.0 Urinary tract infection, site not specified; D25.9 Leiomyoma of uterus, unspecified; D64.9 Anemia, unspecified; I10 Essential (primary) hypertension; Z87.59 Personal history of other complications of pregnancy, childbirth and the puerperium; Z68.31 Body mass index [BMI] 31.0-31.9, adult
CPT/HCPCS: 36415; 36600; 71045; 80048; 80305; 82375; 82805; 83605; 83735; 83880; 84484; 84703; 87804; 93005; 93970; 94640; 94660; 99285; A6261; J0456; J0696; J1650; J1956; J2920; J2930; J3105; J3475; J3480; J3490; J7030; J7050; J7060; J7512; J7608; J7611; J7620; J7626

== ENCOUNTER 2018-12-20 22:11 | Inpatient (IN) | payer MEDICAID ==
[~2018-12-20] VITALS: Ht 167.6 cm; Wt 88.9 kg
[~2018-12-20 22:11] MED LIST changes: -CLON-457 PO; +CLON0.1T PO; +FLUT1AER IH; +HYDR100T26 PO; +IBUP-2029 PO; -LEVO500T2 PO; +MONT10TA24 PO; +OMEP20TA2 PO; +P20 PO; +POTASSIUM CL 8 MEQ PO; +[UNRECOGNIZED DRUG - CODE] PO
[2018-12-20] MEDS ORDERED: ALBUTEROL (0.083%) 2.5MG/3ML NEB HHN STA (22:40)
[2018-12-20] MEDS ORDERED: ONDANSETRON HCL 4MG/2ML INJ IV STA (22:40)
[2018-12-20] MEDS ORDERED: METHYLPREDNISOLONE SOD SUCC 125 MG/2 ML VIAL IV STA (22:40)
[2018-12-20] MEDS ORDERED: IPRATROPIUM BROMIDE (0.02%) 0.5MG/2.5ML NEB HHN STA (22:40)
[2018-12-20 23:20] LABS: BASOPHILS % 0.7 % (0.0-2.0); EOSINOPHILS % 2.2 % (0.0-5.0); HEMATOCRIT. 35.7 % (36.0-48.0); HEMOGLOBIN. 12.1 g/dL (12.0-16.0); LYMPHOCYTES % 28.6 % (20.0-50.0); MEAN CORPUSCULAR HEMOGLOBIN 33.4 pg (28.0-32.0); MEAN CORPUSCULAR VOLUME 98.7 fL (81.0-99.0); MEAN PLATELET VOLUME 7.2 fl (7.4-10.4); NEUTROPHILS % 60.5 % (40.0-76.0); PLATELET 207 x1000/uL (130-400); RED BLOOD CELL COUNT 3.62 mill/uL (4.2-5.4); RED CELL DISTRIBUTION WIDTH 15.2 % (11.6-14.6)
[2018-12-20 23:23] LABS: CHLORIDE 110 mEq/L (98-107)
[2018-12-21] VITALS (8 sets, daily range): BP systolic 134–175; BP diastolic 72–108
[2018-12-21] MEDS: KETOROLAC 15MG/ML VIAL IV SCH ×2 (01:58→04:53)
[2018-12-21] MEDS: POTASSIUM CHLORIDE 20MEQ TABLET SR PO SCH ×3 (01:58→04:52)
[2018-12-21] MEDS ORDERED: ALBUTEROL (0.083%) 2.5MG/3ML NEB HHN STA (02:35)
[2018-12-21] MEDS ORDERED: MAGNESIUM 2 G PREMIX 50 ML IV ONE (02:45)
[2018-12-21] MEDS ORDERED: DOCUSATE SODIUM 100MG CAPSULE PO PRN (10:45)
[2018-12-21] MEDS ORDERED: ONDANSETRON HCL 4MG/2ML INJ IV PRN (10:45)
[2018-12-21] MEDS ORDERED: CLONIDINE 0.1MG TABLET PO SCH (10:45)
[2018-12-21] MEDS ORDERED: GUAIFENESIN-DM 200MG-20MG/10ML UDC PO PRN (10:45)
[2018-12-21] MEDS: LORATADINE 10MG TABLET PO SCH (11:35)
[2018-12-21] MEDS: FAMOTIDINE 20MG TABLET PO SCH ×2 (11:36→22:44)
[2018-12-21] MEDS: AMLODIPINE 10MG TABLET PO SCH (11:36)
[2018-12-21] MEDS: METHYLPREDNISOLONE SOD SUCC 40 MG/ML VIAL IV SCH ×2 (11:41→18:26)
[2018-12-21] MEDS: ACETAMINOPHEN 325MG TABLET PO PRN (11:42)
[2018-12-21] MEDS ORDERED: IPRATROPIUM/ALBUTEROL 0.5-3(2.5)MG/3ML NEB HHN SCH (12:00)
[2018-12-21] MEDS: HYDRALAZINE HCL 100MG TABLET PO SCH ×2 (13:55→22:43)
[2018-12-21] MEDS: IPRATROPIUM BROMIDE (0.02%) 0.5MG/2.5ML NEB HHN SCH ×3 (17:30→23:55)
[2018-12-21 18:23] LABS: *BARBITURATES SCREEN URINE NEGATIVE (NEGATIVE); *BENZODIAZEPINES SCREEN URINE NEGATIVE (NEGATIVE)
[2018-12-21 18:24] LABS: *AMPHETAMINES SCREEN URINE NEGATIVE (NEGATIVE); METHADONE URINE SCREEN NEGATIVE (NEGATIVE); OPIATES URINE SCREEN NEGATIVE (NEGATIVE); PHENCYCLIDINE URINE SCREEN NEGATIVE (NEGATIVE)
[2018-12-21 18:27] LABS: *COCAINE SCREEN URINE PRESUMTIVE POSITIVE (NEGATIVE); CANNABINOID URINE SCREEN PRESUMTIVE POSITIVE (NEGATIVE)
[2018-12-21] MEDS: CLONIDINE 0.1MG TABLET PO PRN (18:27)
[2018-12-21] MEDS: MONTELUKAST SODIUM 10MG TABLET PO SCH (22:43)
[2018-12-21] MEDS: LORAZEPAM 0.5MG TABLET PO PRN (22:44)
[2018-12-21] MEDS: CLONIDINE 0.1MG TABLET PO SCH (22:44)
[2018-12-21] MEDS: HYDROCODONE/ACETAMINOPHEN 5/325MG TABLET PO PRN (22:45)
[2018-12-22] VITALS (12 sets, daily range): BP systolic 103–165; BP diastolic 56–106
[2018-12-22] MEDS: METHYLPREDNISOLONE SOD SUCC 40 MG/ML VIAL IV SCH ×5 (00:25→23:45)
[2018-12-22] MEDS: HYDRALAZINE HCL 100MG TABLET PO SCH ×3 (05:48→21:57)
[2018-12-22] MEDS: CLONIDINE 0.1MG TABLET PO SCH ×3 (05:48→21:57)
[2018-12-22] MEDS: IPRATROPIUM BROMIDE (0.02%) 0.5MG/2.5ML NEB HHN SCH ×5 (06:46→20:48)
[2018-12-22 07:16] LABS: HEMATOCRIT. 36.8 % (36.0-48.0); HEMOGLOBIN. 12.3 g/dL (12.0-16.0); MEAN CORPUSCULAR VOLUME 101.4 fL (81.0-99.0); MEAN PLATELET VOLUME 7.9 fl (7.4-10.4); PLATELET 263 x1000/uL (130-400); RED BLOOD CELL COUNT 3.63 mill/uL (4.2-5.4); RED CELL DISTRIBUTION WIDTH 15.5 % (11.6-14.6)
[2018-12-22 07:29] LABS: CHLORIDE 107 mEq/L (98-107)
[2018-12-22] MEDS: LORATADINE 10MG TABLET PO SCH (09:08)
[2018-12-22] MEDS: FAMOTIDINE 20MG TABLET PO SCH ×2 (09:08→21:57)
[2018-12-22] MEDS: AMLODIPINE 10MG TABLET PO SCH (09:12)
[2018-12-22] MEDS: ACETAMINOPHEN 325MG TABLET PO PRN (10:27)
[2018-12-22 15:10] LABS: PLATELET ESTIMATE NORMAL
[2018-12-22] MEDS: MONTELUKAST SODIUM 10MG TABLET PO SCH (21:57)
[2018-12-22] MEDS: THEOPHYLLINE ANHYDROUS 80 MG/15 ML 120ML PO SCH (21:58)
[2018-12-22] MEDS: LORAZEPAM 0.5MG TABLET PO PRN (22:04)
[2018-12-22] MEDS: HYDROCODONE/ACETAMINOPHEN 5/325MG TABLET PO PRN (22:04)
[2018-12-23] VITALS (12 sets, daily range): BP systolic 124–155; BP diastolic 64–100
[2018-12-23] MEDS: IPRATROPIUM BROMIDE (0.02%) 0.5MG/2.5ML NEB HHN SCH ×6 (00:39→21:12)
[2018-12-23] MEDS: HYDRALAZINE HCL 100MG TABLET PO SCH ×3 (05:41→22:04)
[2018-12-23] MEDS: THEOPHYLLINE ANHYDROUS 80 MG/15 ML 120ML PO SCH ×3 (05:41→22:02)
[2018-12-23] MEDS: CLONIDINE 0.1MG TABLET PO SCH ×3 (05:41→20:34)
[2018-12-23] MEDS: METHYLPREDNISOLONE SOD SUCC 40 MG/ML VIAL IV SCH ×3 (05:41→20:33)
[2018-12-23] MEDS: LORATADINE 10MG TABLET PO SCH (09:01)
[2018-12-23] MEDS: FAMOTIDINE 20MG TABLET PO SCH ×2 (09:02→20:34)
[2018-12-23] MEDS: ACETAMINOPHEN 325MG TABLET PO PRN (09:03)
[2018-12-23] MEDS: AMLODIPINE 10MG TABLET PO SCH (09:03)
[2018-12-23] MEDS: MONTELUKAST SODIUM 10MG TABLET PO SCH (20:34)
[2018-12-23] MEDS: LORAZEPAM 0.5MG TABLET PO PRN (22:04)
[2018-12-23] MEDS: HYDROCODONE/ACETAMINOPHEN 5/325MG TABLET PO PRN (22:04)
[2018-12-24] VITALS (9 sets, daily range): BP systolic 83–171; BP diastolic 31–97
[2018-12-24] MEDS: IPRATROPIUM BROMIDE (0.02%) 0.5MG/2.5ML NEB HHN SCH ×6 (00:28→20:34)
[2018-12-24] MEDS: METHYLPREDNISOLONE SOD SUCC 40 MG/ML VIAL IV SCH ×3 (05:23→20:53)
[2018-12-24] MEDS: CLONIDINE 0.1MG TABLET PO SCH ×3 (05:23→20:56)
[2018-12-24] MEDS: THEOPHYLLINE ANHYDROUS 80 MG/15 ML 120ML PO SCH ×3 (06:09→23:19)
[2018-12-24] MEDS: HYDRALAZINE HCL 100MG TABLET PO SCH ×3 (06:10→23:19)
[2018-12-24] MEDS: ACETAMINOPHEN 325MG TABLET PO PRN ×2 (06:14→12:00)
[2018-12-24 07:07] LABS: BASOPHILS % 0.1 % (0.0-2.0); HEMATOCRIT. 35.6 % (36.0-48.0); HEMOGLOBIN. 11.9 g/dL (12.0-16.0); LYMPHOCYTES % 7.4 % (20.0-50.0); MEAN CORPUSCULAR HEMOGLOBIN 33.7 pg (28.0-32.0); MEAN CORPUSCULAR VOLUME 100.6 fL (81.0-99.0); MEAN PLATELET VOLUME 7.5 fl (7.4-10.4); MONOCYTES % 5.9 % (2.0-8.0); NEUTROPHILS % 86.6 % (40.0-76.0); PLATELET 348 x1000/uL (130-400); RED BLOOD CELL COUNT 3.54 mill/uL (4.2-5.4); RED CELL DISTRIBUTION WIDTH 15.2 % (11.6-14.6)
[2018-12-24] MEDS: FAMOTIDINE 20MG TABLET PO SCH ×2 (08:45→20:54)
[2018-12-24] MEDS: AMLODIPINE 10MG TABLET PO SCH (08:45)
[2018-12-24] MEDS: LORATADINE 10MG TABLET PO SCH (08:45)
[2018-12-24] MEDS: CLONIDINE 0.1MG TABLET PO PRN (19:14)
[2018-12-24] MEDS: MONTELUKAST SODIUM 10MG TABLET PO SCH (20:54)
[2018-12-24] MEDS: GUAIFENESIN 600MG ER TABLET PO SCH (20:54)
[2018-12-24] MEDS: HYDROCODONE/ACETAMINOPHEN 5/325MG TABLET PO PRN (23:29)
[2018-12-25] VITALS (11 sets, daily range): BP systolic 121–160; BP diastolic 67–106
[2018-12-25] MEDS: IPRATROPIUM BROMIDE (0.02%) 0.5MG/2.5ML NEB HHN SCH ×6 (01:03→20:18)
[2018-12-25] MEDS: METHYLPREDNISOLONE SOD SUCC 40 MG/ML VIAL IV SCH ×3 (04:55→21:14)
[2018-12-25] MEDS: LORAZEPAM 0.5MG TABLET PO PRN ×3 (05:00→23:28)
[2018-12-25] MEDS: CLONIDINE 0.1MG TABLET PO SCH ×3 (05:01→21:50)
[2018-12-25] MEDS: THEOPHYLLINE ANHYDROUS 80 MG/15 ML 120ML PO SCH ×3 (05:01→21:50)
[2018-12-25] MEDS: HYDRALAZINE HCL 100MG TABLET PO SCH ×3 (05:22→22:39)
[2018-12-25] MEDS: HYDROCODONE/ACETAMINOPHEN 5/325MG TABLET PO PRN ×2 (05:22→21:51)
[2018-12-25 07:36] LABS: HEMOGLOBIN. 12.6 g/dL (12.0-16.0); MEAN CORPUSCULAR HEMOGLOBIN 33.2 pg (28.0-32.0); MEAN CORPUSCULAR VOLUME 100.2 fL (81.0-99.0); MEAN PLATELET VOLUME 7.7 fl (7.4-10.4); PLATELET 442 x1000/uL (130-400); RED BLOOD CELL COUNT 3.79 mill/uL (4.2-5.4); RED CELL DISTRIBUTION WIDTH 15.4 % (11.6-14.6)
[2018-12-25] MEDS: GUAIFENESIN 600MG ER TABLET PO SCH ×2 (09:30→21:14)
[2018-12-25] MEDS: FAMOTIDINE 20MG TABLET PO SCH ×2 (09:30→21:15)
[2018-12-25] MEDS: ACETAMINOPHEN 325MG TABLET PO PRN (09:31)
[2018-12-25] MEDS: LORATADINE 10MG TABLET PO SCH (09:34)
[2018-12-25] MEDS: AMLODIPINE 10MG TABLET PO SCH (09:38)
[2018-12-25 10:46] LABS: PLATELET ESTIMATE INCREASED
[2018-12-25] MEDS: MONTELUKAST SODIUM 10MG TABLET PO SCH (21:15)
[2018-12-26] VITALS (13 sets, daily range): BP systolic 119–172; BP diastolic 26–97
[2018-12-26] MEDS: IPRATROPIUM BROMIDE (0.02%) 0.5MG/2.5ML NEB HHN SCH ×6 (00:14→21:36)
[2018-12-26] MEDS: ACETAMINOPHEN 325MG TABLET PO PRN (01:24)
[2018-12-26] MEDS: METHYLPREDNISOLONE SOD SUCC 40 MG/ML VIAL IV SCH ×3 (04:49→21:10)
[2018-12-26] MEDS: CLONIDINE 0.1MG TABLET PO SCH ×3 (04:54→21:16)
[2018-12-26] MEDS: LORAZEPAM 0.5MG TABLET PO PRN ×2 (05:00→10:42)
[2018-12-26] MEDS: HYDROCODONE/ACETAMINOPHEN 5/325MG TABLET PO PRN ×2 (05:01→15:11)
[2018-12-26] MEDS: HYDRALAZINE HCL 100MG TABLET PO SCH ×3 (06:14→22:22)
[2018-12-26] MEDS: THEOPHYLLINE ANHYDROUS 80 MG/15 ML 120ML PO SCH ×2 (06:28→13:05)
[2018-12-26] MEDS: GUAIFENESIN 600MG ER TABLET PO SCH ×2 (08:51→21:10)
[2018-12-26] MEDS: FAMOTIDINE 20MG TABLET PO SCH ×2 (08:51→21:11)
[2018-12-26] MEDS: AMLODIPINE 10MG TABLET PO SCH (08:51)
[2018-12-26] MEDS: LORATADINE 10MG TABLET PO SCH (08:51)
[2018-12-26] MEDS ORDERED: FLUT1DIS3 INH (20:05)
[2018-12-26] MEDS ORDERED: FAMO-135 MT (20:05)
[2018-12-26] MEDS ORDERED: CLON0.1T14 PO (20:05)
[2018-12-26] MEDS ORDERED: CLAR10 PO (20:05)
[2018-12-26] MEDS: MONTELUKAST SODIUM 10MG TABLET PO SCH (21:17)
[2018-12-27 02:00] VITALS: BP 145/83
[2018-12-27 02:15] VITALS: BP 145/83
[2018-12-27] MEDS: HYDROCODONE/ACETAMINOPHEN 5/325MG TABLET PO PRN (02:15)
[2018-12-27] MEDS: IPRATROPIUM BROMIDE (0.02%) 0.5MG/2.5ML NEB HHN SCH (02:59)
== END 2018-12-27 04:17 | disposition home or self-care (01) | DRG 816 ==
LOC: ER 22:24 → 5EST 12-21 02:38 → ENRESERV 12-21 07:02
PROVIDERS: ADMIT Internal Medicine; ATTEND Internal Medicine
PROC: 5A09357 Assistance with Respiratory Ventilation, Less than 24 Consecutive Hours, Continuous Positive Airway Pressure (ICD-10-PCS; principal; 2018-12-20)
DX: T40.5X1A Poisoning by cocaine, accidental (unintentional), initial encounter (principal); J96.00 Acute respiratory failure, unspecified whether with hypoxia or hypercapnia; J44.1 Chronic obstructive pulmonary disease with (acute) exacerbation; J45.901 Unspecified asthma with (acute) exacerbation; R65.10 Systemic inflammatory response syndrome (SIRS) of non-infectious origin without acute organ dysfunction; J68.0 Bronchitis and pneumonitis due to chemicals, gases, fumes and vapors; E87.6 Hypokalemia; J98.11 Atelectasis; D64.9 Anemia, unspecified; I10 Essential (primary) hypertension; T40.7X1A Poisoning by cannabis (derivatives), accidental (unintentional), initial encounter; F12.10 Cannabis abuse, uncomplicated; F14.10 Cocaine abuse, uncomplicated; N85.8 Other specified noninflammatory disorders of uterus; Z82.49 Family history of ischemic heart disease and other diseases of the circulatory system; Z82.5 Family history of asthma and other chronic lower respiratory diseases; Z79.899 Other long term (current) drug therapy; Y92.89 Other specified places as the place of occurrence of the external cause
CPT/HCPCS: 36415; 71045; 80048; 80305; 83735; 83880; 84132; 84484; 87804; 93005; 94640; 94660; 99291; J1885; J2405; J2920; J2930; J3475; J7611

== ENCOUNTER 2019-04-05 18:12 | Emergency (ER) | payer MEDICAID, OTHER ==
[~2019-04-05] VITALS: Ht 167.6 cm; Wt 72.0 kg
[~2019-04-05 18:12] MED LIST changes: +CLAR10 PO; -CLON0.1T PO; +CLON0.1T14 PO; +FAMO-135 MT; -FLUT1AER IH; +FLUT1DIS3 INH; -IBUP-2029 PO; -MONT10TA24 PO
[2019-04-05] MEDS ORDERED: SODIUM CHLORIDE 0.9% 1,000 ML IV ONE (18:29)
[2019-04-05 18:55] LABS: BASOPHILS % 0.6 % (0.0-2.0); EOSINOPHILS % 0.4 % (0.0-5.0); HEMATOCRIT. 43.1 % (36.0-48.0); HEMOGLOBIN. 14.2 g/dL (12.0-16.0); MEAN CORPUSCULAR HEMOGLOBIN 31.5 pg (28.0-32.0); MEAN CORPUSCULAR VOLUME 95.4 fL (81.0-99.0); MEAN PLATELET VOLUME 7.4 fl (7.4-10.4); MONOCYTES % 7.7 % (2.0-8.0); NEUTROPHILS % 65.3 % (40.0-76.0); PLATELET 243 x1000/uL (130-400); RED BLOOD CELL COUNT 4.52 mill/uL (4.2-5.4); RED CELL DISTRIBUTION WIDTH 14.9 % (11.6-14.6)
[2019-04-05] MEDS ORDERED: LORAZEPAM 0.5MG TABLET PO ONE (19:00)
[2019-04-05] MEDS ORDERED: CLONIDINE 0.2MG TABLET PO ONE (19:00)
[2019-04-05 19:01] LABS: CHLORIDE 109 mEq/L (98-107)
[2019-04-05] MEDS ORDERED: LORAZEPAM 2MG/ML CPJ IV ONE (20:15)
[2019-04-06] MEDS ORDERED: ASPIRIN 325MG TABLET PO ONE (00:15)
[2019-04-06] MEDS ORDERED: ASPIRIN 325MG TABLET PO NR (04:15)
[2019-04-06 05:36] VITALS: BP 126/90
== END 2019-04-06 05:46 | disposition home or self-care (01) ==
LOC: ER 18:12
DX: F14.129 Cocaine abuse with intoxication, unspecified (principal); F15.129 Other stimulant abuse with intoxication, unspecified; F41.9 Anxiety disorder, unspecified; R00.0 Tachycardia, unspecified; F12.10 Cannabis abuse, uncomplicated; J45.909 Unspecified asthma, uncomplicated; I10 Essential (primary) hypertension; Z79.899 Other long term (current) drug therapy
CPT/HCPCS: 36415; 80053; 81025; 84484; 85025; 93005; 96374; 99284; J2060; J7030

== ENCOUNTER 2019-09-29 12:52 | Emergency (ER) | payer MEDICAID, OTHER ==
[~2019-09-29] VITALS: Ht 167.6 cm; Wt 90.0 kg
[~2019-09-29 12:52] MED LIST changes: +DICL100G31 TP; -HYDR-4001 PO; -HYDR100T26 PO; +NITR0.4T49 SL; -OMEP20TA2 PO; -POTASSIUM CL 8 MEQ PO
[2019-09-29] MEDS ORDERED: ALBUTEROL (0.083%) 2.5MG/3ML NEB HHN STA (13:02)
[2019-09-29] MEDS ORDERED: METHYLPREDNISOLONE SOD SUCC 125 MG/2 ML VIAL IV STA (13:02)
[2019-09-29] MEDS ORDERED: IPRATROPIUM BROMIDE (0.02%) 0.5MG/2.5ML NEB HHN STA (13:02)
[2019-09-29 15:33] VITALS: BP 130/87
== END 2019-09-29 15:38 | disposition home or self-care (01) ==
LOC: ER 12:52
DX: J45.901 Unspecified asthma with (acute) exacerbation (principal); I10 Essential (primary) hypertension
CPT/HCPCS: 71045; 94644; 96374; 99285; J2930; Z7610

== ENCOUNTER 2019-10-08 03:59 | Emergency (ER) | payer MEDICAID ==
[~2019-10-08] VITALS: Ht 167.6 cm; Wt 75.0 kg
[2019-10-08] MEDS ORDERED: ALBUTEROL (0.083%) 2.5MG/3ML NEB HHN STA (04:42)
[2019-10-08] MEDS ORDERED: METHYLPREDNISOLONE SOD SUCC 125 MG/2 ML VIAL IV STA (04:42)
[2019-10-08] MEDS ORDERED: IPRATROPIUM BROMIDE (0.02%) 0.5MG/2.5ML NEB HHN STA (04:42)
[2019-10-08] MEDS ORDERED: NITROGLYCERIN 0.4MG TABLET SL SL PRN (04:45)
[2019-10-08] MEDS ORDERED: ASPIRIN 81MG TABLET PO ONE (04:45)
[2019-10-08 05:37] LABS: BASOPHILS % 0.9 % (0.0-2.0); EOSINOPHILS % 3.8 % (0.0-5.0); HEMATOCRIT. 34.8 % (36.0-48.0); HEMOGLOBIN. 11.6 g/dL (12.0-16.0); LYMPHOCYTES % 26.7 % (20.0-50.0); MEAN CORPUSCULAR HEMOGLOBIN 32.8 pg (28.0-32.0); MEAN CORPUSCULAR VOLUME 98.4 fL (81.0-99.0); MEAN PLATELET VOLUME 7.4 fl (7.4-10.4); MONOCYTES % 11.9 % (2.0-8.0); NEUTROPHILS % 56.7 % (40.0-76.0); PLATELET 312 x1000/uL (130-400); RED BLOOD CELL COUNT 3.54 mill/uL (4.2-5.4); RED CELL DISTRIBUTION WIDTH 16.4 % (11.6-14.6)
[2019-10-08 05:41] LABS: CHLORIDE 111 mEq/L (98-107)
[2019-10-08 05:45] LABS: HCG SCREEN NEGATIVE
[2019-10-08 05:46] LABS: PARTIAL THROMBOPLASTIN TIME 24.9 sec (23.4-31.0); PROTHROMBIN TIME 10.1 sec (9.6-11.0)
[2019-10-08] MEDS ORDERED: CEFTRIAXONE 1 G PREMIX 50 ML IV ONE (06:30)
[2019-10-08] MEDS ORDERED: KETOROLAC 30MG/ML VIAL IV ONE (06:30)
[2019-10-08] MEDS ORDERED: AZITHROMYCIN 500 MG in DEXT 5% WATER 250 ML IV SCH (06:30)
[2019-10-08 09:25] VITALS: BP 130/75
== END 2019-10-08 09:29 | disposition home or self-care (01) ==
LOC: ER 04:05
DX: J40 Bronchitis, not specified as acute or chronic (principal); G89.29 Other chronic pain; M25.551 Pain in right hip; F12.10 Cannabis abuse, uncomplicated; I10 Essential (primary) hypertension; Z79.899 Other long term (current) drug therapy
CPT/HCPCS: 36415; 71045; 73502; 80053; 81025; 83880; 84484; 84703; 85025; 85610; 85730; 93005; 94644; 96365; 96366; 96368; 96375; 99285; J0456; J0696; J1885; J7060; Z7610